=== PATIENT | male | born 2000 | race Caucasian/White ===

== ENCOUNTER 2023-11-22 14:57 | Emergency (ER) | payer BC, SELFPAY ==
[2023-11-22 15:07] VITALS: BP 132/76; PULSE 80; RESP 16; TEMP 37.2; O2SAT 99
--- NOTE | 2023-11-22 15:11 | ED.SKABFB ---
HPI - Skin/Abscess/Foreign Bdy General Chief complaint: Urogenital-Male Stated complaint: Bump/Skin Irritation on Penis Time Seen by Provider: 11/22/23 15:00 Source: patient Mode of arrival: ambulatory Limitations: no limitations History of Present Illness HPI narrative: Josiah is a 23-year-old male patient presenting to the clinic today with complaints of a bump to his penis. He reports that he notices over the last few days. He has been trying to squeeze it to pop it. States that is slightly tender. No drainage Related Data Home Medications Medication Instructions Recorded Confirmed No Home Medications 04/25/20 04/25/20 Allergies Allergy/AdvReac Type Severity Reaction Status Date / Time No Known Allergies Allergy Verified 09/05/20 13:24 Review of Systems Review of Systems: Pertinent positives per HPI. Patient denies any fever, chills, rash, headache, visual changes, dizziness, cough, runny nose, sore throat, shortness of breath, chest pain, palpitations, nausea, vomiting, diarrhea, constipation, abdominal pain, or any urinary issues. PMFSH Family History Family History Mother Ulcer Hypertension Father Back pain Grandparent Ulcer Hypertension Lymphoma Social History Social History Smoking status: Never smoker Alcohol intake: never Substance use: never Comments At the time of my signature, I reviewed and agree with the nursing past medical, surgical, social, and family history. There is no relevant family history pertinent to the patient complaint. Exam Narrative: General: Well-developed, well nourished, in no apparent distress Head: Normocephalic, atraumatic. Cardio: Regular rate and rhythm, s1 and s2 normal, no murmur appreciated. Resp: Clear to auscultation bilaterally, no rhonchi, rales, wheezing or rubs. Integumentary: [place], warm, and dry, intact without lesion, hard bump- to the right inferior penis-no erythema or swelling noted. Possible due to clogged pore Mildly tender to palpation Course Course Emergency Course: Portions of this record may have been created with voice recognition software. Level of Care: Express Care Visit Vital Signs Vital signs: Vital Signs Temperature 37.2 C 11/22/23 15:07 Pulse Rate 80 11/22/23 15:07 Respiratory Rate 16 11/22/23 15:07 Blood Pressure 132/76 11/22/23 15:07 Pulse Oximetry 99 11/22/23 15:07 Temperature 37.2 C 11/22/23 15:07 Pulse Rate 80 11/22/23 15:07 Respiratory Rate 16 11/22/23 15:07 Blood Pressure 132/76 11/22/23 15:07 Pulse Oximetry 99 11/22/23 15:07 Vital signs reviewed MDM - Skin/Abscess/Foreign Bdy MDM Narrative Medical decision making narrative: At the time of visit patient is resting comfortably on the exam table. Patient appears to be nontoxic. Advised watchful observation of follow-up with his PCP if some symptoms persist. Supportive measures were discussed with the patient and they voiced understanding discharge instructions and agrees to treatment plan. Return precautions reviewed Differential Diagnosis Differential diagnosis: Likely abscess of skin or subcutaneous tissue, cellulitis, insect bites and impetigo Discharge Plan Discharge Clinical Impression: Penile lump Patient Disposition: Home, Self-Care Condition: Stable Instructions: Antibiotic Form Additional Instructions: I suspect this lamp may be from a clogged pore and the penile shaft Keep area clean and dry [id number] with your PCP if symptoms persist for longer than 1-2 weeks. Prescriptions: No Action No Home Medications Follow-up/Referrals: PHYSICIAN,MANAGER [employer] [Primary Care Provider] - Time of Disposition: 15:14 Quality NIHSS Nursing Documentation ED NIHSS nursing documentation: reviewed/agree
== END 2023-11-22 15:20 | disposition home or self-care (01) ==
PROVIDERS: Emergency Provider Nurse Practitioner Family
DX: N48.89 Other specified disorders of penis (principal)
CPT/HCPCS: 99211; G0463